=== PATIENT | male | born 1980 | race Caucasian/White ===

== ENCOUNTER 2016-12-16 07:25 | Emergency (ER) | payer OTHER ==
--- NOTE | ~2016-12-16 | CR141 ---
[facility] A Service of [facility] RADIOLOGY TEXT RESULTS PATIENT: STACEY SANABRIA LOCATION: SED : 84 UNIT #: [id number] AGE: [address]: Deejay Salinas MD SEX: M ORDER DR: [id number] [place] [id number] E MR#: [id number] Acc #: [id number] NAME: STACEY SANABRIA : 1980 SEX: M STUDY DATE/TIME: 12/16/2016 7:57 UNIT: SED ROOM: STUDY DESCRIPTION: CR Hand Min 3 Views Lt Attending Physician: Deejay Salinas M.D. Ordering Physician: Deejay Salinas M.D. Primary Care Physician: Primary Care Physician No MEDICAL IMAGING REPORT This report is preliminary unless electronic signature is present. EXAM Left hand, 3 views COMPARISON None. INDICTIONS The 36-year-old male with left hand pain and cramping since working on a deck last night. FINDINGS AP, lateral, and oblique projections of the hand show good mineralization with normal carpal, metacarpal, and phalangeal anatomy without indication of fracture, dislocation, or soft tissue radiopaque foreign body. IMPRESSION Normal hand. Dictated by... Sherman Dang M.D. THIS IS AN ELECTRONICALLY VERIFIED REPORT Sherman Dang M.D. at 12/24/2016 7:30 AM Jimy TD: 12/16/2016 12:11 JOB #: [id number] MEDICAL IMAGING REPORT Page 1 of 1
[~2016-12-16 07:25] MED LIST: ALBUTEROL17 GM INH; BENZONATATE PO; MEDROL DOSEPAK4 MG PO; MORGIDOX100 MG PO; NO MEDICATIONS; OTC COUGH MED; PREDNISONE PO; ROBITUSSIN A-C S5 ML PO; TAMIFLU75 M1 PO; VOLTAREN75 MG PO; ZITHROMAX PO; ZOFRANODT PO
== END 2016-12-16 08:24 | disposition home or self-care (01) ==
LOC: SED 07:25
DX: S63.92XA Sprain of unspecified part of left wrist and hand, initial encounter (principal); X58.XXXA Exposure to other specified factors, initial encounter; Y92.9 Unspecified place or not applicable
CPT/HCPCS: 73130; 99283